=== PATIENT | female | born 1975 | race Two or more races ===

== ENCOUNTER 2016-03-14 16:58 | Observation (INO) | payer BC ==
--- NOTE | 2016-03-14 17:21 | CPEKG ---
Heart Rate: 62 RR Interval: 968 P-R Interval: 104 QRSD Interval: 78 QT Interval: 448 QTC Interval: 455 P [place]: 30 QRS [place]: 65 T Wave [place]: 4 EKG Severity - ABNORMAL ECG - EKG Impression: SINUS RHYTHM EKG Impression: SHORT [place] INTERVAL, ACCELERATED AV CONDUCTION EKG Impression: ABNORMAL T, PROBABLE ISCHEMIA, ANTERIOR LEADS Electronically Signed By: Jenni Terrell 15-Mar-2016 10:09:31
[2016-03-14] MEDS ORDERED: IPRATROPIUM/ALBUTEROL 3 ML DEYVIAL IH ONE (17:30)
--- NOTE | 2016-03-14 17:35 | EDPHY ---
H & P Smoking Status: Never smoked Time Seen by Provider: 03/14/16 17:32 HPI/ROS: HPI: 40-year-old female presents to emergency department with chief concern shortness of breath and chest pain. Reports onset of shortness of breath with 6/ 10 pleuritic anterior chest pressure at noon today. Lives in [place] and has been at elevation snowboarding through yesterday a which time she drove to [place]. 1 hiking today prior to onset of chest pain. Reports a deep cough last night without fever, chills, myalgias. Denies dizziness, abdominal pain, vomiting, diarrhea. Flew from [place], has driven in [place]. No calf pain or swelling. No personal or family history of coagulopathy. Sister had arrhythmia, father had CA at age 47. ROS:10 point review of systems is negative other than as stated in HPI (Zhanna Ragsdale) Past Medical/Surgical History: Asthma (Zhanna Ragsdale) Social History: , lives in [place] (Zhanna Ragsdale) Physical Exam: Vital signs stable, reviewed by me General: Awake, alert, calm, cooperative. No acute distress. Head: Normalocephalic. Atraumatic. EENT: PERRLA. EOMI. No pallor or injection. Anicteric. No nystagmus. No injection. TMs intact bilaterally with normal landmarks. No rhinnorhea, nasal passages clear. Oropharynx without redness, exudates, or lesions. Tonsils 2+ bilaterally, no exudates. Neck: Supple, nontender. No lymphadenopathy. Full range of motion. No meningismus. Respiratory: Breathing unlabored. Breath sounds equal bilaterally and clear to auscultation. No adventitious sounds. CV: Chest atraumatic. Heart rate regular. No murmur, distal pulses 2+ bilaterally. Brisk cap refill all extremities. GI: Abdomen soft, nontender. Bowel sounds normoactive and positive x4 quadrants. Neuro: Alert. Oriented x 3. Speech clear. Nonfocal cranial nerves throughout. Sensation intact all extremities. Skin: Skin warm, dry, intact. No rashes, abrasions, or lacerations. Skin turgor normal. Extremities: Full range of motion in all 4 extremities. Strength 5+ all extremities. Negative calf pain or swelling bilaterally. Negative Homans sign bilaterally. (Zhanna Ragsdale) Constitutional: Initial Vital Signs Temperature (C) 36.6 C 03/14/16 17:02 Heart Rate 71 03/14/16 17:02 Respiratory Rate 27 H 03/14/16 17:02 Blood Pressure 124/63 H 03/14/16 17:02 O2 Sat (%) 99 03/14/16 17:02 O2 Delivery Mode Room Air Allergies/Adverse Reactions: No Known Allergies Allergy (Unverified 03/14/16 17:00) Home Medications: Medication Instructions Recorded NK [No Known Home Meds] 03/14/16 Medical Decision Making ED Course/Re-evaluation: 1735: 40-year-old female presents to emergency department with shortness of breath, 6/10 anterior pleuritic chest discomfort. IV started. Blood drawn. Labs pending. EKG shows a sinus rhythm, rate 62, normal intervals, no axis deviation, abnormal T-waves V2, V3, V4. Given 324 mg chewable aspirin. 1830: CBC and basic metabolic panel are unremarkable. D-dimer and troponin are negative. Patient continues to have anterior chest pain. Will admit her to PCU given her concerning EKG finding and family history. Report given to Dr. Arturo Drake. (Zhanna Ragsdale) Patient was seen and examined by me. She presents with a several day h/o exertional shortness of breath and chest pain. Just prior to arrival she had an episode of chest pain at rest. Chest is clear to auscultation. Cardiovascular regular rhythm and rate without murmur. EKG reveals ischemic changes in the anterior leads. Presentation concerning for acute coronary syndrome. Aspirin was given. Will be admitted for further cardiac evaluation. (Jenni Terrell) Differential Diagnosis: Differential includes but is not limited to pulmonary embolism, acute coronary syndrome, reactive airway disease, URI (Zhanna Ragsdale) Differential diagnosis includes though it is not limited to pneumonia, pneumothorax, pulmonary embolism, aortic dissection, pericarditis, acute coronary syndrome. (Jenni Terrell) - Data Points Laboratory Results: Laboratory Results 03/14/16 17:30 03/14/16 17:30 Medications Given: Discontinued Medications Albuterol/Ipratropium (Duoneb) 3 ml IH EDNOW ONE Stop: 03/14/16 17:31 Last Admin: 03/14/16 17:35 Dose: 3 ml Aspirin (Aspirin) 324 mg PO EDNOW ONE Stop: 03/14/16 17:39 Last Admin: 03/14/16 17:45 Dose: 324 mg Enoxaparin Sodium (Lovenox) 60 mg SC ONCE ONE Stop: 03/14/16 20:31 Last Admin: 03/14/16 21:13 Dose: 60 mg Metoprolol Tartrate (Lopressor) 25 mg PO ONCE ONE Stop: 03/15/16 10:44 Last Admin: 03/15/16 10:57 Dose: 25 mg Departure - Departure Disposition: [facility] Inpatient Acute Clinical Impression: Chest pain Condition: Good
[2016-03-14] MEDS ORDERED: ASPIRIN 81 MG CHEWABLE TAB PO ONE (17:38)
[2016-03-14 17:43] LABS: % IMMATURE GRANULYOCYTES 0.1 % (0.0-1.1); ABSOLUTE IMMATURE GRANULOCYTES 0.01 10^3/uL (0.00-0.10); ADD DIFF? NO; ADD MORPH? NO; ADD SCAN? NO; ATYPICAL LYMPHOCYTE FLAG 10 (0-99); FRAGMENT RBC FLAG 0 (0-99); HEMATOCRIT 39.7 % (38.0-47.0); HEMOGLOBIN 13.9 g/dL (12.6-16.3); LEFT SHIFT FLG 0 (0-99); LIPEMIA HEMOLYSIS FLAG 90 (0-99); MEAN CELL HEMOGLOBIN 29.9 pg (27.9-34.1); MEAN CELL VOLUME 85.4 fL (81.5-99.8); MEAN PLATELET VOLUME 9.6 fL (8.7-11.7); PLATELET CLUMPS FLAG 0 (0-99); PLATELET COUNT 365 10^3/uL (150-400); RED BLOOD CELL COUNT 4.65 10^6/uL (4.18-5.33); RED CELL DISTRIBUTION WIDTH 12.4 % (11.5-15.2)
[2016-03-14 17:58] LABS: ANION GAP 9 mEq/L (8-16); CARBON DIOXIDE 22 mEq/l (22-31); CHLORIDE 108 mEq/L (97-110); CREATININE 0.5 mg/dL (0.6-1.0); GLOMERULAR FILTRATION RATE > 60; GLUCOSE 94 mg/dL (70-100); POTASSIUM 4.1 mEq/L (3.5-5.2); SODIUM 139 mEq/L (134-144)
[2016-03-14 18:10] LABS: TROPONIN I < 0.012 ng/mL (0-0.034)
--- NOTE | 2016-03-14 18:18 | DX ---
PA and Lateral Chest X-ray 1723 hours History: Shortness of breath with chest pain. Previous history of asthma. Findings: Heart size and pulmonary vasculature are normal. The lungs are clear without infiltrates or effusions. The lungs are mildly hyperexpanded. There is no pneumothorax. The osseous structures are intact. Impression: 1. No active cardiopulmonary disease. 2. Mildly hyperexpanded lungs. This is nonspecific but can be seen with an air trapping.
[2016-03-14] MEDS ORDERED: ACETAMINOPHEN 325 MG TAB PO PRN (20:02)
[2016-03-14] MEDS ORDERED: ENOXAPARIN 60 MG/0.6 ML SYR SC ONE ×2 (20:02→20:30)
[2016-03-14] MEDS ORDERED: ONDANSETRON 4 MG/2 ML VIAL IVP PRN (20:02)
[2016-03-14] MEDS ORDERED: ONDANSETRON DISINTEGRATING 4 MG TAB PO PRN (20:02)
--- NOTE | 2016-03-14 20:24 | GHP ---
[f rep st] HISTORY AND PHYSICAL DATE OF ADMISSION: 03/14/2016 DATE OF EVALUATION: 03/14/2016 CHIEF COMPLAINT: Chest pain. HISTORY OF PRESENT ILLNESS: This is a 40-year-old female with no significant past medical history wh o presents with chest pain. Chest pain started at noon today. Somewhat of a pleuritic anterior ches t pain associated with shortness of breath. This occurred while she was hiking today. She did not h ave any presyncope, abdominal pain, vomiting or diarrhea. Evaluation in the emergency department showed an abnormal EKG. She tells me that she was evaluated f or what was determined to be costochondritis about a year ago and aware. She was not told of any EKG abnormalities at that point. PAST MEDICAL/SURGICAL HISTORY: None. MEDICATIONS: None. ALLERGIES: None. SOCIAL HISTORY: She lives in [place]. She is accompanied by her and her daughter. She has ne ciaran smoked. She does not drink. FAMILY HISTORY: Father had an [place] at age 47, though he was a very heavy smoker. REVIEW OF SYSTEMS: A 10-point review of systems is conducted and is negative except per HPI. PHYSICAL EXAMINATION: VITAL SIGNS: Blood pressure is 113/75, heart rate is 69, respiration rate is 20, saturating at 99% on room air. Temperature is 36.8. GENERAL: The patient is a very pleasant, y oung female who appears anxious but otherwise in no acute distress. HEENT: Shows her to be normocep halic, atraumatic. CARDIOVASCULAR: Regular rate and rhythm. There is no murmurs rubs, or gallops. PULMONARY: Shows lungs clear to auscultation bilaterally. ABDOMEN: Soft, nontender, nondistended. SKIN: No rash. : Exam shows no Agu[place]. NEUROLOGIC: Exam shows her to be alert and oriented x3 , moving all extremities. PSYCHIATRIC: Shows normal mood and affect. LABS: Basic metabolic panel is normal. CBC is normal. D-dimer is negative. DATA: 1. Chest x-ray, which I personally reviewed and interpreted, shows nothing acute. 2. EKG, which I personally reviewed and interpreted, shows deep inverted T-waves in V1, most pronoun jorje at V3, but also mildly in V4 as well as lead 3. IMPRESSION/PLAN: A 40-year-old female with chest pain. Chest pain: Concerning given her family history, as well as her ischemic-appearing T-waves. Will at tempt to obtain an old EKG. This is not available at this point. I have discussed her case, as well as her plan of care with Dr. Macdonald. She will be admitted to telemetry. We will make her n.p.o. afte r midnight. We will trend her troponins. We have given her 1 dose of therapeutic Lovenox. She has also received an aspirin in the ED. Further recommendations per Cardiology and clinical course. /[id number]/MODL
[2016-03-15] MEDS ORDERED: ALBUTEROL 3 ML DEYVIAL IH PRN (00:39)
--- NOTE | 2016-03-15 00:55 | CPEKG ---
Heart Rate: 72 RR Interval: 833 P-R Interval: 156 QRSD Interval: 82 QT Interval: 480 QTC Interval: 526 P Ethan: 35 QRS Ethan: 67 T Wave Ethan: 5 EKG Severity - ABNORMAL ECG - EKG Impression: SINUS RHYTHM EKG Impression: ABNORMAL T, PROBABLE ISCHEMIA, ANTERIOR LEADS Electronically Signed By: Johana Mcguire 15-Mar-2016 07:23:57
[2016-03-15 05:33] LABS: % IMMATURE GRANULYOCYTES 0.3 % (0.0-1.1); ABSOLUTE IMMATURE GRANULOCYTES 0.02 10^3/uL (0.00-0.10); ADD DIFF? NO; ADD MORPH? NO; ADD SCAN? NO; ATYPICAL LYMPHOCYTE FLAG 10 (0-99); FRAGMENT RBC FLAG 0 (0-99); HEMATOCRIT 38.8 % (38.0-47.0); HEMOGLOBIN 13.1 g/dL (12.6-16.3); LEFT SHIFT FLG 0 (0-99); LIPEMIA HEMOLYSIS FLAG 90 (0-99); MEAN CELL HEMOGLOBIN 29.6 pg (27.9-34.1); MEAN CELL HEMOGLOBIN CONCENTR. 33.8 g/dL (32.4-36.7); MEAN CELL VOLUME 87.6 fL (81.5-99.8); MEAN PLATELET VOLUME 10.1 fL (8.7-11.7); PLATELET CLUMPS FLAG 10 (0-99); PLATELET COUNT 329 10^3/uL (150-400); RED BLOOD CELL COUNT 4.43 10^6/uL (4.18-5.33); RED CELL DISTRIBUTION WIDTH 12.5 % (11.5-15.2)
[2016-03-15 05:51] LABS: ANION GAP 8 mEq/L (8-16); CALCIUM 8.5 mg/dL (8.5-10.4); CARBON DIOXIDE 25 mEq/l (22-31); CHLORIDE 106 mEq/L (97-110); CREATININE 0.6 mg/dL (0.6-1.0); GLOMERULAR FILTRATION RATE > 60; GLUCOSE 88 mg/dL (70-100); POTASSIUM 4.1 mEq/L (3.5-5.2); SODIUM 139 mEq/L (134-144)
[2016-03-15 05:59] LABS: TROPONIN I < 0.012 ng/mL (0-0.034)
[2016-03-15 09:02] VITALS: TEMP 98.2
[2016-03-15] MEDS ORDERED: METOPROLOL TARTRATE 25 MG TAB PO ONE (10:43)
--- NOTE | 2016-03-15 11:21 | GCON ---
[f rep st] CONSULTATION CARDIAC CONSULTATION. DATE OF CONSULTATION: 03/15/2016 CHIEF COMPLAINT: Chest pain and shortness of breath. HISTORY OF PRESENT ILLNESS: Aubrie is a 40-year-old female visiting from [place], who presented to the hospital complaining of chest pressure and shortness of breath. She was found to have an abnorma l EKG with T-wave inversion in the anterior leads concerning for ischemia. She and her partner arriv ed in [place] on Monday and went straight [place] to the mountains. Over the next 2 days, she complai teagan of shortness of breath and a headache, but felt better by Monday. On Monday, they drove down to [place] and she did feel well at that time. She went for a small hike on Monday without any chest di scomfort. About 3 hours later while she was resting at the house, she developed chest pressure/tight ness with associated shortness of breath. This persisted and therefore, she presented to urgent care who transferred her to the emergency room. Her discomfort persisted until she was given morphine an d oxygen at around midnight last night. Her troponins have been negative, but her EKG shows deep T-w ave changes in leads V2 through V4. [facility] at which time she had an E[facility]. She was told at that time that her EKG was normal. She denies any history of hypertension, hyperlipidemia, diabetes, or prior tobacco use. FAMILY HISTORY: Coronary artery disease with her father dying of a fatal [place] at the age of 48. Her s ister has a known arrhythmia, but the details are unknown. PAST MEDICAL HISTORY: None. PAST SURGICAL HISTORY: None. FAMILY HISTORY: As stated above. Her father had a fatal [place] at 48. Her sister has an arrhythmia whi ch is monitored on a regular basis. SOCIAL HISTORY: She is currently accompanied by her partner and daughter. She denies any history of tobacco use. She does drink caffeine, approximately 2 cups a day. This is more than what she would typically consume. HOME MEDICATIONS: None. ALLERGIES: No known drug allergies. PHYSICAL EXAMINATION: GENERAL: Patient appears in no acute distress. VITALS: Blood pressure 115/6 9, heart rate 70, oxygen saturation of 96% on room air. Afebrile. NECK: No carotid bruits or JVD p resent. LUNGS: Clear to auscultation. No wheezes, rhonchi, or crackles auscultated. CARDIAC: Reg ular rate and rhythm without any murmurs, rubs, or gallops appreciated. ABDOMEN: Soft, nontender, n ondistended. Bowel sounds present. EXTREMITIES: Palpable pulses bilaterally without any evidence o f edema. NEUROLOGIC: Nonfocal. SKIN: No obvious rashes or ecchymosis identified. PSYCHIATRIC: M ood and affect appropriate. LABORATORY: BMP within normal limits. Troponin negative x3. D-dimer 0.27. CBC within normal limit s. REPORTS: Her last EKG reveals normal sinus rhythm with heart rate of 72, OK interval 156, QRS durati on of 82, and a QTc of 526. She has deep T-wave inversion in the anterior leads and a long QTc. Her initial EKG did show T-wave inversion, but her QTc is more within normal limits at 455. Chest x-ray was negative for acute cardiopulmonary disease. ASSESSMENT: The patient is a 40-year-old female, who presents with angina and EKG concerning for ant erior ischemia. PLAN: Aubrie is a 40-year-old female visiting from [place] who presents with chest pressure/tightne ss, shortness of breath and an EKG concerning for ischemia. She has a deep T-waves in the anterior l christie. Her only risk factor for coronary disease is a family history. She denies any history of hype rtension, hyperlipidemia, diabetes, or prior tobacco use. It does appear that the changes on her EKG are new. She apparently had an EKG approximately 2 years ago and was told it was normal at that yuriy e. I do think she needs further cardiac testing given new changes on her EKG and symptoms of chest d iscomfort. Options including an angiogram, nuclear stress test or coronary CT angiogram were discuss ed with her today. She would like to proceed with a coronary CT angiogram which I think is the most appropriate study. Her heart rate is currently in the 70s and therefore, she will be given metoprolo l 25 mg now in anticipation for the CT scan later today. /[id number]/MODL
[2016-03-15 11:39] VITALS: BP 120/66; PULSE 71; RESP 15; O2SAT 94
[2016-03-15] MEDS ORDERED: IOPAMIDOL (ISOVUE 370) 100 ML BTL IV ONE (12:49)
--- NOTE | 2016-03-15 15:39 | CT ---
CT Coronary Angiogram Limited Prospective Gating 1333 hours History: Abnormal EKG with T-wave inversion. Check for ischemia. Rule out coronary artery disease or anomalous coronary artery.. Technique: Postprocessing was performed. Volume rendered images were reviewed and vessel analysis was performed of the coronary arteries. Images were obtained on a [address] scanner. With the IV administration of 97 mL Isovue-370 IV contrast, serial axial CT images were obtained through the heart utilizing th in slice technique and prospective gating. Images were obtained after premedication with 25 mg metopr olol orally. At the time of the CT, the heart rate was 65-72 bpm. Dose reduction techniques were uti lized. CT Angiogram of the Coronary Arteries: The overall quality of the study is adequate. There is some motion artifact identified involving the proximal and mid right coronary artery as well as proximal left main coronary artery. There is adequate visualization of the coronary arteries. The patient has a right dominant system wit h normal origins of the coronary arteries. Left main: No calcified or soft plaque is seen and there is no stenosis. Proximal LAD and first diagonal branch: No calcified or soft plaque is seen and there is no stenosis. Mid-distal LAD, D2 and D3 branches: No calcified or soft plaque is seen and there is no stenosis. Left circumflex and its OM branches: Small caliber vessel. No calcified or soft plaque is seen and th ere is no stenosis. Right coronary artery and its branches: No calcified or soft plaque is seen and there is no stenosis . Cardiac Morphology: The right atrium is normal. The right ventricle is normal. The left atrium is normal. The left ventricle is normal. There is some apical thinning of the left ventricle. The valv es are normal. Extracardiac soft tissues: There is no hilar or mediastinal lymphadenopathy. The pericardium is jacky l. No underlying pulmonary nodules are seen Impression: Normal coronary arterial system. Mild motion artifact is identified. All measurements of stenoses are based on NASCET criteria.
--- NOTE | 2016-03-15 16:26 | GDS ---
[f rep st] DISCHARGE SUMMARY DISCHARGE DIAGNOSIS: Include acute chest pain, thought noncardiac. HISTORY OF PRESENT ILLNESS: A 40-year-old female with no significant past medical history, who prese nted with complaints of chest pain when visiting from the [facility]. For details of the patient's i nitial presentation, please see the history and physical dated 03/14/2016. CONSULTATIVE SERVICES: Include Cardiology. PROCEDURES: On 03/15/2016, patient had a cardiac CT which shows normal coronary arterial system. HOSPITAL COURSE BY ISSUE: Chest pain: Patient had atypical component of this pain, such as it came on days after exertion but did have significant family history. After consultation with cardiology, we decided most appropriate imaging study with her EKG at presentation with T-wave inversions was to perform cardiac CT. That imaging in fact is normal. Patient is being discharged without additional medications or intervention, can follow with her primary care doctor in the outpatient setting. Her vital signs on the day of disposition, she is satting 94% on room air, heart rates in the 70s with a blood pressure of 120/66. We feel perfectly safe for travel back to the [facility]. MEDICATIONS AT THE TIME OF DISPOSITION: None. FOLLOWUP APPOINTMENTS: With her primary care provider as needed or for any changes in her chest symp toms. PENDING STUDIES AT THE TIME OF THIS DICTATION: None. TIME SPENT: I spent greater than 30 minutes in the planning and coordination of this discharge. /[id number]/MODL
== END 2016-03-15 17:27 | disposition home or self-care (01) ==
LOC: F2W 20:06
PROVIDERS: ADMIT Student in an Organized Health Care Education/Training Program; ATTEND Student in an Organized Health Care Education/Training Program
DX: R07.9 Chest pain, unspecified (principal); R06.02 Shortness of breath; Z82.49 Family history of ischemic heart disease and other diseases of the circulatory system; R94.31 Abnormal electrocardiogram [ECG] [EKG]; J45.909 Unspecified asthma, uncomplicated
CPT/HCPCS: 71020; 75574; 93005; 99285; G0378; J1650; Q9967